=== PATIENT | male | born 1980 | race Two or more races ===

== ENCOUNTER 2019-09-19 07:48 | Emergency (ER) | payer BC ==
[~2019-09-19] VITALS: Ht 177.8 cm; Wt 115.1 kg
[2019-09-19 08:36] LABS: BASOPHILS # (AUTO) 0.01 x10^3/uL (0-0.1); BASOPHILS % (AUTO) 0 % (0-1); EOSINOPHILS # (AUTO) 0.02 x10^3/uL (0-0.4); EOSINOPHILS % (AUTO) 0 % (1-7); LYMPHOCYTES % (AUTO) 11 % (22-44); MD NO; MEAN CORPUSCULAR HEMOGLOBIN 30.1 pg (27.5-34.5); MEAN CORPUSCULAR HGB CONC 33.9 g/dL (33.2-36.2); MEAN CORPUSCULAR VOLUME 88.6 fL (81-97); MEAN PLATELET VOLUME 8.2 fL (7.4-10.4); MONOCYTES # (AUTO) 0.55 x10^3/uL (0.2-0.8); MONOCYTES % (AUTO) 6 % (2-9); NEUTROPHILS # (AUTO) 8.29 x10^3/uL (1.8-6.8); NEUTROPHILS % (AUTO) 83 % (42-75); PLATELET COUNT 271 x10^3/uL (130-400); RED BLOOD COUNT 5.52 x10^6/uL (4.38-5.82)
--- NOTE | 2019-09-19 08:38 | NUR ---
PT IN HOSPITAL GOWN. PT ABLE TO PROVIDE A URINE SAMPLE, URINE WALKED TO LAB. PT SIFE AT BEDSIDE. IV STARTED. LABS DRAWN OFF IV START. PT AWAITING CT.
[2019-09-19 08:46] LABS: ALBUMIN 3.5 g/dL (3.4-5.0); ANION GAP 8 mmol/L (5-15); CALCIUM 8.5 mg/dL (8.5-10.1); CHLORIDE 109 mmol/L (98-107); CREATININE 0.79 mg/dL (0.7-1.3)
--- NOTE | 2019-09-19 09:01 | NUR ---
PT RESTING IN BED, STILL AWAITING CT SCAN. WILL CONTINUE TO MONITOR. NO STATED NEEDS AT THIS TIME. CALL LIGHT WITHIN REACH.
[2019-09-19] MEDS ORDERED: SODIUM CHLORIDE FLUSH 10ML SYR IVF ONE (09:30)
--- NOTE | 2019-09-19 10:01 | NUR ---
pt going to ct
[2019-09-19] MEDS ORDERED: OMNIPAQUE 350 MG/ML, 100ML BOTTLE ONE (10:13)
--- NOTE | 2019-09-19 10:34 | NUR ---
PT UP FOR RECHECK. CT RESULTED
[2019-09-19] MEDS ORDERED: LIDOCAINE-MPF 1%, 5ML ONE (10:44)
--- NOTE | 2019-09-19 10:59 | NUR ---
I&D BEING DONE AT THIS TIME. PT HAS SIGNED CONSENT FORM WITH USE OF [employer] INTERPRETOR INTERPRETATION PRIOR TO PROCEDURE.
[2019-09-19] MEDS ORDERED: LIDOCAINE-MPF 1%, 5ML INFIL ONE (11:00)
[2019-09-19] MEDS ORDERED: OXYcodone/APAP 5/325MG TABLET PO ONE (11:30)
[2019-09-19] MEDS ORDERED: ONDANSETRON ODT 8 MG PO ONE (11:30)
[2019-09-19] MEDS ORDERED: OXYcodone/APAP 5/325MG TABLET ONE (11:37)
[2019-09-19] MEDS ORDERED: ONDANSETRON ODT 8 MG ONE (11:37)
[2019-09-19 11:44] VITALS: BP 138/87
== END 2019-09-19 11:46 | disposition home or self-care (01) ==
LOC: ED 08:47
DX: K61.0 Anal abscess (principal)
CPT/HCPCS: 36415; 46050; 74177; 80048; 82040; 85025; 99285; Q0162; Q9967

== ENCOUNTER 2020-09-14 10:21 | Day surgery (SDC) | payer BC ==
[~2020-09-14] VITALS: Ht 177.8 cm; Wt 115.9 kg
[2020-09-14] MEDS ORDERED: LIDOCAINE JELLY 2%, 30GM ONE (11:16)
[2020-09-14] MEDS ORDERED: EPINEPHRINE 1 MG/ML, 1ML ONE (11:16)
[2020-09-14] MEDS ORDERED: BUPIVACAINE/PF 0.5% ONE (11:16)
[2020-09-14] MEDS ORDERED: SILVER SULF. CRM 1% , 25GM ONE (11:16)
[2020-09-14] MEDS ORDERED: NONE PER PT (11:36)
[2020-09-14] MEDS ORDERED: CHLORHEXIDINE 15 ML UDC ONE (11:39)
[2020-09-14 11:40] VITALS: BP 153/101
[2020-09-14] MEDS ORDERED: CHLORHEXIDINE 15 ML UDC PO ONE (12:00)
[2020-09-14] MEDS ORDERED: LACTATED RINGERS 1,000 ML IV SCH (12:00)
[2020-09-14] MEDS ORDERED: PROPOFOL 50 ML ONE (12:10)
[2020-09-14] MEDS ORDERED: FENTANYL PF 250 MCG/5ML ONE (12:10)
[2020-09-14] MEDS ORDERED: MIDAZOLAM 1 MG/ML, 2ML ONE (12:10)
[2020-09-14] MEDS ORDERED: HYDR-2214 PO (12:58)
[2020-09-14] MEDS ORDERED: DIAZEPAM 5 MG/ML, 2ML IVPush PRN (13:00)
[2020-09-14] MEDS ORDERED: EPHEDRINE 50 MG/ML, 1ML IM PRN (13:00)
[2020-09-14] MEDS ORDERED: DIPHENHYDRAMINE 50 MG/ML, 1ML IVPush PRN (13:00)
[2020-09-14] MEDS ORDERED: FENTANYL PF 100 MCG/2ML IV PRN (13:00)
[2020-09-14] MEDS ORDERED: PROMETHAZINE 25 MG/ML, 1ML IVPush PRN (13:00)
[2020-09-14] MEDS ORDERED: OXYcodone 5 MG/5 ML ORAL.SOL UDC PO PRN (13:00)
[2020-09-14] MEDS ORDERED: morphine SULFATE 10 MG/ML, 1ML IVPush PRN (13:00)
[2020-09-14] MEDS ORDERED: ONDANSETRON 2MG/ML, 2ML IVPush PRN (13:00)
[2020-09-14] MEDS ORDERED: MEPERIDINE/PF 25MG/0.5ML IVPush PRN (13:00)
[2020-09-14] MEDS ORDERED: ACETAMINOPHEN 325 MG TABLET PO PRN (13:00)
[2020-09-14] MEDS ORDERED: LABETALOL 5MG/ML, 20ML IV PRN (13:00)
[2020-09-14] MEDS ORDERED: EPHEDRINE 50 MG/ML, 1ML IVPush PRN (13:00)
== END 2020-09-14 15:50 | disposition home or self-care (01) ==
LOC: OUT 10:21
PROVIDERS: ATTEND Surgery
DX: K60.3 Anal fistula (principal); E66.9 Obesity, unspecified; Z20.822 Contact with and (suspected) exposure to COVID-19; Z79.899 Other long term (current) drug therapy
CPT/HCPCS: 46270; J2250; J2704; J3010; J7120; U0003; U0005; J0171